=== PATIENT | male | born 1995 | race Caucasian/White ===

== ENCOUNTER 2017-05-23 18:30 | Emergency (ER) | payer BC, OTHER ==
[2017-05-23] MEDS ORDERED: ONDANSETRON 4 MG/2 ML VIAL IVP STA (19:34)
[2017-05-23 21:33] VITALS: BP 127/74; PULSE 76; RESP 18; TEMP 99
--- NOTE | 2017-05-23 21:39 | ED ---
General Adult HPI - General Chief complaint: Overdose Stated complaint: overdose Time Seen by Provider: 05/23/17 18:32 Source: patient, EMS, RN notes reviewed Mode of arrival: EMS Limitations: no limitations - History of Present Illness Initial comments: 22-year-old male presents status post heroin overdose. Patient was found by family apneic and cyanotic. EMS did provide [id number] ventilation, IV was established and 2 mg of IV Narcan was given. Patient admits to using IV heroin laced with fentanyl. States he is a nearly daily user. He used several occasions today. Denies any suicidal ideation. Denies any pain complaints. Denies chest pain shortness of breath denies fever or chills. Patient states he only uses clean needles. - Related Data Home Medications Medication Instructions Recorded Confirmed No Known Home Medications [No 05/23/17 05/23/17 Known Home Medications] Allergies Allergy/AdvReac Type Severity Reaction Status Date / Time Penicillins Allergy Unknown Verified 05/23/17 19:49 Childhood Review of Systems ROS Statement: Those systems with pertinent positive or pertinent negative responses have been documented in the HPI. ROS Other: All systems not noted in ROS Statement are negative. Past Medical History Past Medical History: No Reported History Additional Past Medical History / Comment(s): anxiety, Depression History of Any Multi-Drug Resistant Organisms: None Reported Past Surgical History: Adenoidectomy, Ear Surgery, Tonsillectomy Past Anesthesia/Blood Transfusion Reactions: No Reported Reaction Past Psychological History: Anxiety, Bipolar, Depression Smoking Status: Current every day smoker Past Alcohol Use History: None Reported Past Drug Use History: Heroin, Opiates - Past Family History Father Family Medical History: Coronary Artery Disease (CAD) Additional Family Medical History / Comment(s): Father is alive at age 58 with history of coronary artery disease. Mother Family Medical History: Hypertension Additional Family Medical History / Comment(s): Mother is alive at age 50 with history of hypertension. Patient has 2 brothers and 3 sisters with no major medical problems. General Exam Limitations: no limitations General appearance: alert, in no apparent distress Head exam: Present: atraumatic, normocephalic Eye exam: Present: normal appearance, PERRL ENT exam: Present: normal exam, mucous membranes moist Neck exam: Present: normal inspection, full ROM. Absent: meningismus Respiratory exam: Present: normal lung sounds bilaterally, respiratory distress. Absent: wheezes Cardiovascular Exam: Present: regular rate, normal rhythm GI/Abdominal exam: Present: soft. Absent: distended, tenderness Extremities exam: Present: other (tract Case throughout bilateral upper extremities) Neurological exam: Present: alert, oriented X3, CN II-XII intact. Absent: motor sensory deficit Psychiatric exam: Present: normal affect, depressed Skin exam: Present: warm, dry Course Vital Signs 05/23/17 05/23/17 05/23/17 18:36 19:00 19:42 Temperature 100.1 F H Pulse Rate 91 86 99 Respiratory 18 18 18 Rate Blood Pressure 138/85 128/82 127/82 O2 Sat by Pulse 100 99 99 Oximetry 05/23/17 05/23/17 20:07 20:53 Temperature Pulse Rate 86 87 Respiratory 18 16 Rate Blood Pressure 125/76 125/75 O2 Sat by Pulse 98 95 Oximetry - Reevaluation(s) Reevaluation #1: 05/23/17 21:39 Patient is observed, on reevaluation, he remains alert and oriented, no respiratory distress, normal respiratory rate, no hypoxia Medical Decision Making - Medical Decision Making 22-year-old male presents status post heroin overdose. Patient admits to using IV heroin. He was given 2 mg IV Narcan by EMS for apnea and cyanosis. Time he arrived to emergency department he was alert and oriented, no respiratory distress, no hypoxia. Patient was observed with no return of symptoms. Patient denies any suicidal ideation or attempt. He'll be discharged home with outpatient follow-up. Disposition Clinical Impression: Poisoning by opiate or related narcotic Disposition: HOME SELF-CARE Condition: Stable Instructions: Opioid Overdose (ED) Referrals: None,Stated [Primary Care Provider] - 1-2 days Eliza Palomino MD [STAFF PHYSICIAN] - 1-2 days Time of Disposition: 21:41
== END 2017-05-23 21:56 | disposition home or self-care (01) ==
LOC: EC 18:30
DX: T40.601A Poisoning by unspecified narcotics, accidental (unintentional), initial encounter (principal); F17.200 Nicotine dependence, unspecified, uncomplicated; Z88.0 Allergy status to penicillin
CPT/HCPCS: 99284; 96374; J2405

== ENCOUNTER 2018-07-17 12:30 | Emergency (ER) | payer BC, OTHER ==
--- NOTE | 2018-07-17 13:36 | ED ---
General Adult HPI - General Chief complaint: Psychiatric Symptoms Stated complaint: Mental Health Time Seen by Provider: 07/17/18 13:13 Source: patient, RN notes reviewed Mode of arrival: ambulatory Limitations: no limitations - History of Present Illness Initial comments: Patient 23-year-old male presented to the emergency room today with chief complaint of needing psychiatric evaluation. Patient was brought in by port please. Patient states that he is homeless he was at a hoahaoism she was trying to get some sleep when somebody called the police on him. He doesn't that he was upset he was "talking shit". He states that they did call the police they felt that he was going to harm himself they brought him here for psychiatric evaluation. Patient denies any thoughts of hurting himself or others. He denies any visual or auditory hallucinations. Denies any other complaints. - Related Data Home Medications Medication Instructions Recorded Confirmed No Known Home Medications 05/23/17 07/17/18 Allergies Allergy/AdvReac Type Severity Reaction Status Date / Time Penicillins Allergy Unknown Verified 07/17/18 13:23 Childhood Review of Systems ROS Statement: Those systems with pertinent positive or pertinent negative responses have been documented in the HPI. ROS Other: All systems not noted in ROS Statement are negative. Past Medical History Past Medical History: No Reported History Additional Past Medical History / Comment(s): anxiety, Depression History of Any Multi-Drug Resistant Organisms: None Reported Past Surgical History: Adenoidectomy, Ear Surgery, Tonsillectomy Past Anesthesia/Blood Transfusion Reactions: No Reported Reaction Past Psychological History: Anxiety, Bipolar, Depression Smoking Status: Current every day smoker Past Alcohol Use History: None Reported Past Drug Use History: Heroin, Opiates - Past Family History Father Family Medical History: Coronary Artery Disease (CAD) Additional Family Medical History / Comment(s): Father is alive at age 58 with history of coronary artery disease. Mother Family Medical History: Hypertension Additional Family Medical History / Comment(s): Mother is alive at age 50 with history of hypertension. Patient has 2 brothers and 3 sisters with no major medical problems. General Exam - General Exam Comments Initial Comments: General: The patient is awake and alert, in no distress, and does not appear acutely ill. Eye: Pupils are equal, round and reactive to light. Extra-ocular movements are intact. No nystagmus. There is normal conjunctiva bilaterally. No signs of icterus. Ears, nose, mouth and throat: There are moist mucous membranes and no oral lesions. Neck: The neck is supple, there is no tenderness or JVD. Cardiovascular: There is a regular rate and rhythm. No murmur, rub or gallop is appreciated. Respiratory: Lungs are clear to auscultation, respirations are non-labored, breath sounds are equal. No wheezes, stridor, rales, or rhonchi. Musculoskeletal: Normal ROM, no tenderness. Sensation intact. Strength 5/5. Pulses equal bilaterally 2+. Neurological: A&O x 3. CN II-XII intact, There are no obvious motor or sensory deficits. Coordination appears grossly intact. Speech is normal. Skin: Skin is warm and dry and no rashes or lesions are noted. Psychiatric: Cooperative. Limitations: no limitations Course Vital Signs 07/17/18 12:35 Temperature 98.1 F Pulse Rate 92 Respiratory 18 Rate Blood Pressure 131/97 O2 Sat by Pulse 94 L Oximetry Medical Decision Making - Medical Decision Making Patient's a urine emergency room by [facility]. The recommended the patient may be discharged follow-up outpatient. [facility] will follow the patient. Patient has no suicidal or homicidal thoughts or plans. Will be discharged. - Lab Data Lab Results 07/17/18 Range/Units 13:15 Urine Opiates Screen Detected H (NotDetected) Ur Oxycodone Screen Not Detected (NotDetected) Urine Methadone Screen Not Detected (NotDetected) Ur Propoxyphene Screen Not Detected (NotDetected) Ur Barbiturates Screen Not Detected (NotDetected) U Tricyclic Antidepress Not Detected (NotDetected) Ur Phencyclidine Scrn Not Detected (NotDetected) Ur Amphetamines Screen Not Detected (NotDetected) U Methamphetamines Scrn Not Detected (NotDetected) U Benzodiazepines Scrn Not Detected (NotDetected) Urine Cocaine Screen Detected H (NotDetected) U Marijuana (THC) Screen Not Detected (NotDetected) Disposition Clinical Impression: Depression Disposition: HOME SELF-CARE Condition: Good Instructions: Depression (ED) Additional Instructions: Please follow-up with community mental health as discussed. Please return to emergency room for any other concerns. Is patient prescribed a controlled substance at d/c from ED?: No Referrals: None,Stated [Primary Care Provider] - 1-2 days Time of Disposition: 16:27
[2018-07-17 13:52] LABS: Amphetamine Screen,Urine Not Detected (NotDetected); Barbiturate Screen,Urine Not Detected (NotDetected); Benzodiazepines Screen,Urine Not Detected (NotDetected); Cocaine Screen,Urine Detected (NotDetected); Methadone Screen, Urine Not Detected (NotDetected); Opiate Screen,Urine Detected (NotDetected); Oxycodone Screen, Urine Not Detected (NotDetected); Phencyclidine Screen,Urine Not Detected (NotDetected); Tricyclic Antidepressant,Urine Not Detected (NotDetected); Urn Cannabinoid Scrn Not Detected (NotDetected)
[2018-07-17 16:47] VITALS: BP 129/69; PULSE 74; RESP 16; TEMP 98.3
== END 2018-07-17 16:47 | disposition home or self-care (01) ==
LOC: EC 12:30
DX: F32.9 Major depressive disorder, single episode, unspecified (principal); F17.200 Nicotine dependence, unspecified, uncomplicated; Z59.0 Homelessness; Z88.0 Allergy status to penicillin
CPT/HCPCS: 80306; 82075; 99283

== ENCOUNTER 2018-12-03 20:59 | Inpatient (IN) | payer MEDICAID, OTHER ==
--- NOTE | 2018-12-03 21:41 | ED ---
General Adult HPI - General Chief complaint: Psychiatric Symptoms Stated complaint: EPS eval Time Seen by Provider: 12/03/18 21:04 Source: patient, RN notes reviewed Mode of arrival: ambulatory Limitations: no limitations - History of Present Illness Initial comments: 23-year-old male presents emergency Department for psychiatric evaluation. Patient states she is depressed and suicidal. Patient states that he does have a history of drug abuse, alcohol abuse. Patient states he recently got out of rehab states he has been using heroin again. Patient states he does not want to live this life. Patient states his last use was yesterday. Patient states he does use intravenous heroin. Patient denies any current alcohol use. Denies any homicidal ideation. Denies any physical complaints. - Related Data Home Medications Medication Instructions Recorded Confirmed No Known Home Medications 05/23/17 12/03/18 Allergies Allergy/AdvReac Type Severity Reaction Status Date / Time Penicillins Allergy Unknown Verified 12/03/18 21:37 Childhood Review of Systems ROS Statement: Those systems with pertinent positive or pertinent negative responses have been documented in the HPI. ROS Other: All systems not noted in ROS Statement are negative. Past Medical History Past Medical History: No Reported History Additional Past Medical History / Comment(s): anxiety, Depression History of Any Multi-Drug Resistant Organisms: None Reported Past Surgical History: Adenoidectomy, Ear Surgery, Tonsillectomy Past Anesthesia/Blood Transfusion Reactions: No Reported Reaction Past Psychological History: Anxiety, Bipolar, Depression Smoking Status: Current every day smoker Past Alcohol Use History: None Reported Past Drug Use History: Heroin, Opiates - Past Family History Father Family Medical History: Coronary Artery Disease (CAD) Additional Family Medical History / Comment(s): Father is alive at age 58 with history of coronary artery disease. Mother Family Medical History: Hypertension Additional Family Medical History / Comment(s): Mother is alive at age 50 with history of hypertension. Patient has 2 brothers and 3 sisters with no major medical problems. General Exam Limitations: no limitations General appearance: alert, in no apparent distress Head exam: Present: atraumatic, normocephalic, normal inspection Eye exam: Present: normal appearance, PERRL, EOMI. Absent: scleral icterus, conjunctival injection, periorbital swelling ENT exam: Present: normal exam, normal oropharynx, mucous membranes moist Neck exam: Present: normal inspection. Absent: tenderness, meningismus, lymphadenopathy Respiratory exam: Present: normal lung sounds bilaterally. Absent: respiratory distress, wheezes, rales, rhonchi, stridor Cardiovascular Exam: Present: regular rate, normal rhythm, normal heart sounds. Absent: systolic murmur, diastolic murmur, rubs, gallop, clicks GI/Abdominal exam: Present: soft, normal bowel sounds. Absent: distended, tenderness, guarding, rebound, rigid Neurological exam: Present: alert, oriented X3, CN II-XII intact Psychiatric exam: Present: depressed Course Vital Signs 12/03/18 21:01 Temperature 98.2 F Pulse Rate 87 Respiratory 18 Rate Blood Pressure 135/88 O2 Sat by Pulse 98 Oximetry Medical Decision Making - Lab Data Lab Results 12/03/18 Range/Units 22:05 Urine Opiates Screen Detected H (NotDetected) Ur Oxycodone Screen Not Detected (NotDetected) Urine Methadone Screen Not Detected (NotDetected) Ur Propoxyphene Screen Not Detected (NotDetected) Ur Barbiturates Screen Not Detected (NotDetected) U Tricyclic Antidepress Not Detected (NotDetected) Ur Phencyclidine Scrn Not Detected (NotDetected) Ur Amphetamines Screen Not Detected (NotDetected) U Methamphetamines Scrn Not Detected (NotDetected) U Benzodiazepines Scrn Not Detected (NotDetected) Urine Cocaine Screen Detected H (NotDetected) U Marijuana (THC) Screen Not Detected (NotDetected) Disposition Clinical Impression: Major depression, Suicidal ideation, Drug abuse Disposition: TRANSFER TO PSYCH HOSP/UNIT Condition: Stable Referrals: None,Stated [Primary Care Provider] - 1-2 days
[2018-12-03 22:29] LABS: Amphetamine Screen,Urine Not Detected (NotDetected); Barbiturate Screen,Urine Not Detected (NotDetected); Benzodiazepines Screen,Urine Not Detected (NotDetected); Cocaine Screen,Urine Detected (NotDetected); Methadone Screen, Urine Not Detected (NotDetected); Opiate Screen,Urine Detected (NotDetected); Oxycodone Screen, Urine Not Detected (NotDetected); Phencyclidine Screen,Urine Not Detected (NotDetected); Tricyclic Antidepressant,Urine Not Detected (NotDetected); Urn Cannabinoid Scrn Not Detected (NotDetected)
[2018-12-04 00:38] VITALS: BMI 22.8
[2018-12-04] MEDS ORDERED: ZIPRASIDONE 20 MG VIAL IM PRN (01:08)
[2018-12-04] MEDS ORDERED: MAGNESIUM HYDROXIDE 2,400 MG/10 ML CUP PO PRN (01:08)
[2018-12-04] MEDS ORDERED: MAG HYDROX/AL HYDROX/SIMETH 30 ML CUP PO PRN (01:08)
[2018-12-04 01:29] LABS: Appearance,Urine Clear (Clear); Bilirubin,Urine Negative (Negative); Blood,Urine Negative (Negative); Color,Urine Light Yellow; Glucose,Urine (UA) Negative (Negative); Ketones,Urine Negative (Negative); Leukocyte Esterase,Urine Negative (Negative); Nitrite,Urine Negative (Negative); Protein,Urine Negative (Negative); Specific Gravity,Urine 1.009 (1.001-1.035); Urobilinogen,Urine <2.0 mg/dL (<2.0)
[2018-12-04] MEDS: LORazepam 1 MG TAB PO PRN ×3 (01:40→19:42)
--- NOTE | 2018-12-04 07:17 | P.MDCNMH ---
History of Present Illness H&P Date: 12/04/18 Chief Complaint: Suicidal ideation 23-year-old male with no significant past medical history except for polysubstance abuse Patient has recently been a drug rehab facility and was discharged however he relapsed into using heroin. His last time 2 days ago. Patient admits to using heroin by injecting. He admits to suicidal ideation with plan to overdose. He has overdosed in the past at least 8 times. Currently denies any physical complaints or any medical history. He denies any fevers or chills headache changes in his vision or hearing denies any chest pain or trouble breathing denies any abdominal pain nausea vomiting or any changes in his bowel or urinary habits. Urine drug screen in the ER was positive for cocaine and opiates Review of Systems Pertinent positives as noted in HPI. All other systems were reviewed and are negative Past Medical History Past Medical History: No Reported History Additional Past Medical History / Comment(s): anxiety, Depression History of Any Multi-Drug Resistant Organisms: None Reported Past Surgical History: Adenoidectomy, Ear Surgery, Tonsillectomy Past Anesthesia/Blood Transfusion Reactions: No Reported Reaction Smoking Status: Current every day smoker - Past Family History Father Family Medical History: Coronary Artery Disease (CAD) Additional Family Medical History / Comment(s): Father is alive at age 58 with history of coronary artery disease. Mother Family Medical History: Hypertension Additional Family Medical History / Comment(s): Mother is alive at age 50 with history of hypertension. Patient has 2 brothers and 3 sisters with no major medical problems. Medications and Allergies Home Medications Medication Instructions Recorded Confirmed Type No Known Home Medications 05/23/17 12/03/18 History Allergies Allergy/AdvReac Type Severity Reaction Status Date / Time Penicillins Allergy Unknown Verified 12/04/18 01:12 Childhood Physical Exam Vitals: Vital Signs Temp Pulse Pulse Resp BP BP Pulse Ox 12/04/18 00:33 98.8 F 82 14 139/86 97 12/03/18 23:58 98.0 F 72 18 152/82 98 12/03/18 21:01 98.2 F 87 18 135/88 98 Intake and Output 12/03/18 12/04/18 12/04/18 22:59 06:59 14:59 Other: Weight 79.379 kg Constitutional: No acute distress, conversant, pleasant Eyes: Anicteric sclerae, moist conjunctiva, no lid-lag Pupils equal round reactive to light ENMT: NC/AT Oropharynx clear, no erythema, no exudates Neck: Supple, FROM, no masses, or JVD No carotid bruits No thyromegaly Lungs: Clear to auscultation Clear to percussion Normal respiratory effort, no accessory muscle use Cardiovascular: Heart regular in rate and rhythm, No murmurs, gallops, or rubs No peripheral edema Abdominal: Soft Nontender, no guarding, rebound or rigidity Abdomen moving with respiration Normoactive bowel sounds No hepatomegaly, No splenomegaly No palpable mass No abdominal wall hernia noted Skin: Injection goldstein over bilateral antecubital fossa Normal temperature, tone, texture, turgor No induration No subcutaneous nodules No rash, lesions No ulcers Extremities: No digital cyanosis No clubbing Pedal pulses intact and symmetrical Radial pulses intact and symmetrical No calf tenderness Psychiatric: Alert and oriented to person, place and time Appropriate affect Poor judgment Neuro Muscles Strength 5/5 in all 4 extremities Sensation to light touch grossly present throughout Cranial nerves II-XII grossly intact No focal sensory deficits Lymphatics: no palpable cervical or supraclavicular , or inguinal lymph nodes Cranial Nerve Examination - Cranial Nerves Cranial Nerve II- Optic: Intact Cranial Nerve III- Oculomotor: Intact Cranial Nerve IV- Trochlear: Intact Cranial Nerve V- Trigeminal: Intact Cranial Nerve - Abducens: Intact Cranial Nerve VII- Facial: Intact Cranial Nerve VIII- Auditory: Intact Cranial Nerve IX- Glossopharyngeal: Intact Cranial Nerve X- Vagus: Intact Cranial Nerve XI- Accessory: Intact Cranial Nerve XII- Hypoglossal: Intact Results Labs: Abnormal Lab Results - Last 24 Hours (Table) 12/03/18 Range/Units 22:05 Urine Opiates Screen Detected H (NotDetected) Urine Cocaine Screen Detected H (NotDetected) Assessment and Plan Assessment: [id number] with no significant past medical history. Presented due to suicidal ideation patient admits to heroin abuse, with history of overdoses in the past. He was having thoughts of ending his life with an overdose. Currently denies any physical or medical complaints. Plan: Suicidal ideation Suicide precautions Management per psych Polysubstance abuse Urine toxicology was positive for cocaine and opiates Patient counseled to avoid drug of abuse Patient recently was discharged from drug rehab facility Tobacco smoking Patient counseled to quit smoking Nicotine replacement therapy offered Patient is ambulatory low risk for DVT Thank you for allowing us to participate in the care of this patient. We will follow peripherally. Do not hesitate to contact us with questions. Someone can be reached from the [facility] hospitalist group at all hours of the day at [phone].
[2018-12-04] MEDS: NICOTINE 7MG/24HR PATCH TRANSDERM SCH (07:52)
[2018-12-04] MEDS ORDERED: HALOPERIDOL LACTATE 5 MG/ML 1 ML VIAL IM PRN (09:49)
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
[2018-12-04] MEDS ORDERED: NALTREXONE HCL 50 MG TAB PO SCH (21:00)
[2018-12-04] MEDS: BENZTROPINE MESYLATE 1 MG TAB PO SCH (21:23)
[2018-12-04] MEDS: ACETAMINOPHEN TAB 325 MG TAB PO PRN (23:59)
[2018-12-05] MEDS: LORazepam 1 MG TAB PO PRN ×3 (03:46→23:46)
[2018-12-05] MEDS: buPROPion XL 150 MG TAB.ER.24H PO SCH (07:39)
[2018-12-05] MEDS: NICOTINE 7MG/24HR PATCH TRANSDERM SCH (07:39)
[2018-12-05] MEDS: BENZTROPINE MESYLATE 1 MG TAB PO SCH ×2 (07:39→21:01)
[2018-12-05] MEDS: ACETAMINOPHEN TAB 325 MG TAB PO PRN (10:56)
--- NOTE | 2018-12-05 12:40 | P.PN ---
Progress Note - Text Progress Note Date: 12/05/18 Interval history: Patient seen in cross coverage today. He relates that last night he was having difficulties, relays he felt like he was having side effects after he took the naltrexone. Naltrexone was discontinued. He feels like he is feeling much better today. He does describe feeling as though he is having some opioid withdrawal symptoms. He states that he last used heroin approximately 2-3 days ago. Mental status exam: He is alert and cooperative with the interview. His speech is fluent, not rapid or pressured. His mood currently appears to be pretty stable. He has not verbalize any hallucinations. He has not verbalize any linda delusions. He denies any thoughts of harm to self or others. He does not show any agitation. Plan: We'll maintain current psychotropic medications as is. We'll discontinue Haldol IM. Monitor for any psychotropic medication side effects and monitor his ongoing response to treatment.
[2018-12-05] MEDS: MELATONIN 3 MG TABLET PO SCH (21:01)
[2018-12-06] MEDS: cloNIDine HCL 0.1 MG TAB PO PRN ×3 (01:30→20:15)
[2018-12-06] MEDS: NICOTINE 7MG/24HR PATCH TRANSDERM SCH ×2 (07:45→09:51)
[2018-12-06] MEDS: buPROPion XL 150 MG TAB.ER.24H PO SCH (07:46)
[2018-12-06] MEDS: BENZTROPINE MESYLATE 1 MG TAB PO SCH (07:46)
[2018-12-06 08:22] LABS: ALT 46 U/L (21-72); AST 28 U/L (17-59); Alkaline Phosphatase 60 U/L (38-126); Anion Gap 11 mmol/L; Bilirubin, Delta 0.2 mg/dL (0.0-0.2); Bilirubin,Unconjugated 0.8 mg/dL (0.0-1.1); Blood Urea Nitrogen 15 mg/dL (9-20); Calcium 10.4 mg/dL (8.4-10.2); Carbon Dioxide 25 mmol/L (22-30); Chloride 108 mmol/L (98-107); Cholesterol 138 mg/dL (<200); Glucose 99 mg/dL (74-99); HDL Cholesterol 47 mg/dL (40-60); LDL Cholesterol,Calculated 75 mg/dL (0-99); Potassium 3.7 mmol/L (3.5-5.1); Sodium 144 mmol/L (137-145); Total Protein 7.8 g/dL (6.3-8.2); Triglycerides 80 mg/dL (<150)
[2018-12-06 09:43] LABS: Basophils # (A) 0.1 k/uL (0-0.2); Basophils % (A) 1 %; Eosinophils # (A) 0.1 k/uL (0-0.7); Eosinophils % (A) 1 %; HCT 42.1 % (39.0-53.0); HGB 14.3 gm/dL (13.0-17.5); Lymphocytes # (A) 2.6 k/uL (1.0-4.8); Lymphocytes % (A) 28 %; MCH 29.9 pg (25.0-35.0); MCHC 33.9 g/dL (31.0-37.0); MCV 88.1 fL (80.0-100.0); Mean Platelet Volume 6.3; Monocytes # (A) 0.5 k/uL (0-1.0); Monocytes % (A) 5 %; Neutrophils # (A) 6.1 k/uL (1.3-7.7); Neutrophils % (A) 64 %; Platelet Count 275 k/uL (150-450); RBC 4.78 m/uL (4.30-5.90); RDW 12.7 % (11.5-15.5); WBC 9.5 k/uL (3.8-10.6)
[2018-12-06] MEDS: LORazepam 1 MG TAB PO PRN ×2 (09:51→18:11)
[2018-12-06] MEDS ORDERED: BENZTROPINE MESYLATE 1 MG TAB PO PRN (11:28)
--- NOTE | 2018-12-06 11:33 | P.PN ---
Progress Note - Text Progress Note Date: 12/06/18 Interval history: Patient is seen again in cross coverage today. He says he did sleep about 3-4 hours last night. Clonidine 0.1 mg 3 times a day when necessary was ordered last night for opioid withdrawal. He describes yesterday having an instance where he picked up an empty box and was trying to make a phone call with it. He relays that he was talking to the nurse about leaving the unit. He is able to use some of his coping skills. He makes reference to at times having some auditory hallucinations that are calling his name. Mental status exam: He is alert and cooperative with the interview. Speech is fluent, not rapid or pressured. His thought processes overall are organized. Regarding mood he does not present in a manic fashion, he does describe having some on and off suicidal ideations but reports he feels safe here on the unit. He describes at times hearing a voice call his name but denies any current auditory hallucinations. He does not show any agitation. Plan: Patient will be maintained on current psychotropic medication regimen. Cogentin will be changed to when necessary, I do not notice any abnormal involuntary movements. We will monitor for any psychosis symptoms, consider addition of a different antipsychotic if necessary.
[2018-12-06] MEDS: MELATONIN 3 MG TABLET PO SCH (20:12)
[2018-12-07] MEDS: LORazepam 1 MG TAB PO PRN ×3 (01:48→20:41)
[2018-12-07] MEDS: NICOTINE 7MG/24HR PATCH TRANSDERM SCH (08:02)
[2018-12-07] MEDS: buPROPion XL 150 MG TAB.ER.24H PO SCH (08:02)
[2018-12-07] MEDS: cloNIDine HCL 0.1 MG TAB PO PRN (08:45)
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
[2018-12-07] MEDS: cloNIDine HCL 0.1 MG TAB PO SCH ×3 (11:42→20:41)
[2018-12-07] MEDS: ACETAMINOPHEN TAB 325 MG TAB PO PRN (16:10)
[2018-12-07] MEDS: MELATONIN 3 MG TABLET PO SCH (20:41)
[2018-12-07] MEDS ORDERED: lamoTRIgine 25 MG TAB PO SCH (21:00)
[2018-12-07] MEDS ORDERED: NALTREXONE HCL 50 MG TAB PO SCH (21:00)
[2018-12-08] MEDS: LORazepam 1 MG TAB PO PRN (04:47)
[2018-12-08 06:35] VITALS: BP 120/65; PULSE 65; RESP 16; TEMP 98.6
[2018-12-08] MEDS: NICOTINE 7MG/24HR PATCH TRANSDERM SCH (08:11)
[2018-12-08] MEDS: cloNIDine HCL 0.1 MG TAB PO SCH (08:12)
[2018-12-08] MEDS ORDERED: buPROPion XL 300 MG TAB.ER.24H PO SCH (09:00)
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
[2018-12-08] MEDS ORDERED: lamoTRIgine 25 MG TAB PO SCH (21:00)
== END 2018-12-08 13:09 | disposition home or self-care (01) | DRG 881 ==
LOC: EC 20:59 → 3MHU 23:58
PROVIDERS: ADMIT Psychiatry & Neurology Psychiatry; ATTEND Psychiatry & Neurology Psychiatry
DX: F32.9 Major depressive disorder, single episode, unspecified (principal); F11.23 Opioid dependence with withdrawal; R45.851 Suicidal ideations; F14.10 Cocaine abuse, uncomplicated; Z71.6 Tobacco abuse counseling; F17.210 Nicotine dependence, cigarettes, uncomplicated; F41.0 Panic disorder [episodic paroxysmal anxiety]; Z79.899 Other long term (current) drug therapy; Z82.49 Family history of ischemic heart disease and other diseases of the circulatory system; Z65.3 Problems related to other legal circumstances; Z88.0 Allergy status to penicillin; Z91.19 Patient's noncompliance with other medical treatment and regimen; Z81.1 Family history of alcohol abuse and dependence
CPT/HCPCS: 80053; 80061; 80306; 81003; 82075; 82248; 83036; 84443; 85025; 99285

== ENCOUNTER 2019-04-26 12:04 | Emergency (ER) | payer OTHER ==
[2019-04-26 12:21] VITALS: RESP 18; TEMP 99
--- NOTE | 2019-04-26 13:12 | ED ---
Upper Extremity HPI - General Chief Complaint: Extremity Injury, Upper Stated Complaint: lt shoulder pain Time Seen by Provider: 04/26/19 12:42 Source: patient, RN notes reviewed Mode of arrival: ambulatory Limitations: no limitations - History of Present Illness Initial Comments: 23-year-old male presents emergency Department chief complaint of left shoulder pain. Patient is has been bothersome for last few days. Patient states he does not know what did do it though he did admit that he helped a friend do a setting gel over the weekend. Patient states pain is worse with movement. Patient states when he lays down he has worsening symptoms. Patient's pain is better at rest worse or no paresthesias no swelling no obvious deformity. - Related Data Home Medications Medication Instructions Recorded Confirmed Ibuprofen [Motrin Ib] 400 mg PO Q6H PRN 04/26/19 04/26/19 Previous Rx's Medication Instructions Recorded Ibuprofen [Motrin] 600 mg PO Q8HR PRN #30 tab 04/26/19 Allergies Allergy/AdvReac Type Severity Reaction Status Date / Time Penicillins Allergy Unknown Verified 04/26/19 13:21 Childhood Review of Systems ROS Statement: Those systems with pertinent positive or pertinent negative responses have been documented in the HPI. ROS Other: All systems not noted in ROS Statement are negative. Past Medical History Past Medical History: No Reported History Additional Past Medical History / Comment(s): anxiety, Depression History of Any Multi-Drug Resistant Organisms: None Reported Past Surgical History: Adenoidectomy, Ear Surgery, Tonsillectomy Past Anesthesia/Blood Transfusion Reactions: No Reported Reaction Past Psychological History: Anxiety, Bipolar, Depression Smoking Status: Current every day smoker Past Alcohol Use History: None Reported Past Drug Use History: None Reported - Past Family History Father Family Medical History: Coronary Artery Disease (CAD) Additional Family Medical History / Comment(s): Father is alive at age 58 with history of coronary artery disease. Mother Family Medical History: Hypertension Additional Family Medical History / Comment(s): Mother is alive at age 50 with history of hypertension. Patient has 2 brothers and 3 sisters with no major medical problems. General Exam Limitations: no limitations General appearance: alert, in no apparent distress Head exam: Present: atraumatic, normocephalic, normal inspection Eye exam: Present: normal appearance, PERRL, EOMI. Absent: scleral icterus, conjunctival injection, periorbital swelling ENT exam: Present: normal exam, normal oropharynx, mucous membranes moist Neck exam: Present: normal inspection, full ROM. Absent: tenderness, meningismus, lymphadenopathy Respiratory exam: Present: normal lung sounds bilaterally. Absent: respiratory distress, wheezes, rales, rhonchi, stridor Cardiovascular Exam: Present: regular rate, normal rhythm, normal heart sounds. Absent: systolic murmur, diastolic murmur, rubs, gallop, clicks Extremities exam: Present: other (Left shoulder full range of motion, mild discomfort about 90, mild tenderness over the joints, neurovascular intact, machine packer strength equal bilaterally) Neurological exam: Present: alert, oriented X3, CN II-XII intact, reflexes normal. Absent: motor sensory deficit Skin exam: Present: warm, dry, intact, normal color. Absent: rash Course Vital Signs 04/26/19 12:19 Temperature 99.0 F Pulse Rate 92 Respiratory 18 Rate Blood Pressure 133/76 O2 Sat by Pulse 97 Oximetry Medical Decision Making - Medical Decision Making 24-year-old male presented for left shoulder pain. Patient's symptoms are consistent with bursitis. Patient x-ray unremarkable. Patient will be discharged. Disposition Clinical Impression: Bursitis of left shoulder Disposition: HOME SELF-CARE Condition: Stable Instructions (If sedation given, give patient instructions): Shoulder Bursitis (ED) Additional Instructions: Please return to the Emergency Department if symptoms worsen or any other concerns. Prescriptions: Ibuprofen [Motrin] 600 mg PO Q8HR PRN #30 tab PRN Reason: Pain Is patient prescribed a controlled substance at d/c from ED?: No Referrals: [facility] [Primary Care Provider] - 1-2 days Time of Disposition: 14:39
--- NOTE | 2019-04-26 14:24 | XR ---
EXAMINATION TYPE: XR shoulder complete LT DATE OF EXAM: 04/26/2019 CLINICAL HISTORY: Left shoulder pain with no known injury TECHNIQUE: Three views of the left shoulder are obtained. COMPARISON: None. FINDINGS: There is no acute fracture/dislocation evident in the left shoulder. The acromioclavicula r and glenohumeral joint spaces appear within normal limits. The visualized ribs are intact and unre markable. IMPRESSION: There is no acute fracture or dislocation in the left shoulder.
[2019-04-26] MEDS ORDERED: DEXAMETHASONE SOD PHOSPHATE 10 MG/ML 1 ML VIAL IM STA (14:41)
[2019-04-26 14:48] VITALS: BP 129/70; PULSE 88
== END 2019-04-26 14:50 | disposition home or self-care (01) ==
LOC: EC 12:04
DX: M75.52 Bursitis of left shoulder (principal); F17.200 Nicotine dependence, unspecified, uncomplicated; Z88.0 Allergy status to penicillin
CPT/HCPCS: 73030; 99283; 96372; J1100

== ENCOUNTER 2019-06-28 14:42 | Emergency (ER) | payer OTHER ==
[2019-06-28 14:48] VITALS: BP 112/76; PULSE 79; RESP 18; TEMP 97.8
[2019-06-28] MEDS ORDERED: KETOROLAC 60 MG/2 ML VIAL IM STA (16:21)
--- NOTE | 2019-06-28 16:32 | ED ---
Back Pain HPI - General Chief Complaint: Back Pain/Injury Stated Complaint: Back injury Time Seen by Provider: 06/28/19 15:11 Source: patient Limitations: no limitations - History of Present Illness Initial Comments: Patient is a 24-year-old male presenting to emergency Department with complaints of right low back pain 3 hours. Patient states he was playing kickball and went to turn it when he felt some tightness in his low back. Patient states at first the pain was very minimal and then a few hours later the pain has increased. Patient states the tightness is in his right lower back and does have some radiation down into his right glut and posterior aspect of upper leg. Patient denies any fever, chills, numbness, tingling, saddle paresthesias, difficulty with urination. Patient denies any history of back surgeries. Patient rates his pain a 7/10. Upon arrival to ER, patient is seen walking around as normal. Vital signs stable, afebrile. - Related Data Home Medications Medication Instructions Recorded Confirmed Ibuprofen [Motrin Ib] 400 mg PO Q6H PRN 04/26/19 04/26/19 Previous Rx's Medication Instructions Recorded Ibuprofen [Motrin] 600 mg PO Q8HR PRN #30 tab 04/26/19 Cyclobenzaprine [Flexeril] 5 mg PO BID #10 tablet 06/28/19 Ketorolac [Toradol] 10 mg PO Q8HR #15 tab 06/28/19 Allergies Allergy/AdvReac Type Severity Reaction Status Date / Time Penicillins Allergy Unknown Verified 06/28/19 14:49 Childhood Review of Systems ROS Statement: Those systems with pertinent positive or pertinent negative responses have been documented in the HPI. ROS Other: All systems not noted in ROS Statement are negative. Past Medical History Past Medical History: No Reported History Additional Past Medical History / Comment(s): anxiety, Depression History of Any Multi-Drug Resistant Organisms: None Reported Past Surgical History: Adenoidectomy, Ear Surgery, Tonsillectomy Past Anesthesia/Blood Transfusion Reactions: No Reported Reaction Past Psychological History: Anxiety, Bipolar, Depression Smoking Status: Current every day smoker Past Alcohol Use History: Occasional Past Drug Use History: None Reported - Past Family History Father Family Medical History: Coronary Artery Disease (CAD) Additional Family Medical History / Comment(s): Father is alive at age 58 with history of coronary artery disease. Mother Family Medical History: Hypertension Additional Family Medical History / Comment(s): Mother is alive at age 50 with history of hypertension. Patient has 2 brothers and 3 sisters with no major medical problems. General Exam - General Exam Comments Initial Comments: GENERAL: Well-appearing, well-nourished and in no acute distress. HEAD: Atraumatic, normocephalic. EYES: Pupils equal round and reactive to light, extraocular movements intact, sclera anicteric, conjunctiva are normal. ENT: TMs normal, nares patent, oropharynx clear without exudates. Moist mucous membranes. NECK: Normal range of motion, supple without lymphadenopathy or JVD. LUNGS: Breath sounds clear to auscultation bilaterally and equal. No wheezes rales or rhonchi. HEART: Regular rate and rhythm without murmurs, rubs or gallops. ABDOMEN: Soft, nontender, normoactive bowel sounds. No guarding, no rebound. No masses appreciated. : Deferred EXTREMITIES: No pitting or edema. No clubbing or cyanosis. Mild tenderness to palpation of the right lumbar paraspinals and right glut. Patient has normal range of motion of the right hip and leg. Sensation equal in bilateral lower extremities. Strength 5 out of 5 in the lower extremities. NEUROLOGICAL: Cranial nerves II through XII grossly intact. Normal speech, normal gait. PSYCH: Normal mood, normal affect. SKIN: Warm, Dry, normal turgor, no rashes or lesions noted. Limitations: no limitations Course Vital Signs 06/28/19 14:46 Temperature 97.8 F Pulse Rate 79 Respiratory 18 Rate Blood Pressure 112/76 O2 Sat by Pulse 98 Oximetry Medical Decision Making - Medical Decision Making Patient is a 24-year-old male presenting with right-sided low back pain 4 hours. Patient was playing kickball when he twisted and felt a pull in his right lower back. Patient denies any previous injuries or surgeries of his back. On exam patient has some mild tenderness to the right lumbar paraspinals with some radiation into the right Glute. Patient's strength is normal, sensation is normal. Patient denies any saddle paresthesias, difficulty urination. Patient was given Toradol for pain relief. Patient will be discharged home with trial of muscle relaxer and anti-inflammatory. Patient is in agreement this plan of care. Patient will follow up with primary care if symptoms persist after 2 weeks. Return parameters were discussed with the patient he verbalizes understanding. Case discussed with Dr. Matt. Disposition Clinical Impression: Strain of lumbar region Disposition: HOME SELF-CARE Condition: Stable Instructions (If sedation given, give patient instructions): Acute Low Back Pain (ED) Additional Instructions: Please return to the Emergency Department if symptoms worsen or any other concerns. Prescriptions: Cyclobenzaprine [Flexeril] 5 mg PO BID #10 tablet Ketorolac [Toradol] 10 mg PO Q8HR #15 tab Is patient prescribed a controlled substance at d/c from ED?: No Referrals: None,Stated [Primary Care Provider] - 1-2 days
== END 2019-06-28 16:47 | disposition home or self-care (01) ==
LOC: EC 14:42 → SUPCPDRO 14:42 → EC 16:47
DX: S39.012A Strain of muscle, fascia and tendon of lower back, initial encounter (principal); F17.200 Nicotine dependence, unspecified, uncomplicated; Z88.0 Allergy status to penicillin; X50.9XXA Other and unspecified overexertion or strenuous movements or postures, initial encounter; Y93.6A Activity, physical games generally associated with school recess, summer camp and children; Y92.39 Other specified sports and athletic area as the place of occurrence of the external cause
CPT/HCPCS: 99283; 96372; J1885

== ENCOUNTER 2020-03-30 05:35 | Emergency (ER) | payer OTHER ==
[2020-03-30 05:40] VITALS: RESP 18; TEMP 98.8
--- NOTE | 2020-03-30 05:52 | ED ---
Overdose HPI - General Chief Complaint: Overdose Stated Complaint: Overdose Time Seen by Provider: 03/30/20 05:47 Source: patient, EMS Mode of arrival: EMS Limitations: no limitations - History of Present Illness Initial Comments: Estevan is a 25-year-old male with a history of IV opiate abuse who presents to the ER after an apparent overdose. Patient reports he was clean for 3 months he was on Vivatrol, he began using IV heroin approximately a week ago and states that he had he is higher doses likely because he still had medication in his system. Patient states that tonight he used heroin and was found by one of his friends unresponsive. Friend was able to give him nasal Narcan and EMS was contacted. EMS arrived on scene to find the patient awake alert oriented vomiting and apparent withdrawal. Patient was transferred to hospital for further evaluation. Upon arrival patient remains awake alert oriented aware of what happened admits to using too much heroin denies other drug use denies suicide attempt. - Related Data Previous Rx's Medication Instructions Recorded Naloxone HCl [Narcan] 4 mg NASAL ONCE PRN #1 unit 03/30/20 Allergies Allergy/AdvReac Type Severity Reaction Status Date / Time Penicillins Allergy Unknown Verified 03/30/20 06:59 Childhood Review of Systems ROS Statement: Those systems with pertinent positive or pertinent negative responses have been documented in the HPI. ROS Other: All systems not noted in ROS Statement are negative. Past Medical History Past Medical History: No Reported History Additional Past Medical History / Comment(s): anxiety, Depression History of Any Multi-Drug Resistant Organisms: None Reported Past Surgical History: Adenoidectomy, Ear Surgery, Tonsillectomy Past Anesthesia/Blood Transfusion Reactions: No Reported Reaction Past Psychological History: Anxiety, Bipolar, Depression Smoking Status: Current every day smoker Past Alcohol Use History: Occasional Past Drug Use History: None Reported - Past Family History Father Family Medical History: Coronary Artery Disease (CAD) Additional Family Medical History / Comment(s): Father is alive at age 58 with history of coronary artery disease. Mother Family Medical History: Hypertension Additional Family Medical History / Comment(s): Mother is alive at age 50 with history of hypertension. Patient has 2 brothers and 3 sisters with no major medical problems. General Exam - General Exam Comments Initial Comments: Physical Exam GENERAL: Patient is well-developed and well-nourished. Patient is nontoxic and well-hydrated and is in no distress. HENT: Normocephalic, Atraumatic. EYES: PERRL, EOMI Pupils 4mm reactive bilaterally PULMONARY: Unlabored respirations. CARDIOVASCULAR: RRR Warm and well perfused extremities ABDOMEN: Non-distended SKIN: No rashes or bruising Scars in AC, no abscess : Deferred NEUROLOGIC: Alert and oriented Normal speech Normal gait MUSCULOSKELETAL: Moving all extremities with no apparent injury PSYCHIATRIC: No SI/HI Limitations: no limitations Course Vital Signs 03/30/20 03/30/20 05:36 06:42 Temperature 98.8 F Pulse Rate 92 78 Respiratory 18 18 Rate Blood Pressure 150/91 129/83 O2 Sat by Pulse 99 99 Oximetry Medical Decision Making - Medical Decision Making Patient was seen and evaluated history is obtained from patient and EMS Patient awake alert oriented status post intranasal Narcan Disposition Clinical Impression: Drug abuse Disposition: HOME SELF-CARE Condition: Stable Instructions (If sedation given, give patient instructions): Adult Overdose (ED) Prescriptions: Naloxone HCl [Narcan] 4 mg NASAL ONCE PRN #1 unit PRN Reason: Opioid Reversal Is patient prescribed a controlled substance at d/c from ED?: No Referrals: None,Stated [Primary Care Provider] - 1-2 days
[2020-03-30 06:43] VITALS: BP 129/83; PULSE 78
== END 2020-03-30 07:04 | disposition home or self-care (01) ==
LOC: EC 05:35
DX: F19.10 Other psychoactive substance abuse, uncomplicated (principal); F17.200 Nicotine dependence, unspecified, uncomplicated; Z88.0 Allergy status to penicillin
CPT/HCPCS: 99284

== ENCOUNTER 2020-05-14 16:04 | Emergency (ER) | payer OTHER ==
[2020-05-14 16:12] VITALS: BP 141/82; PULSE 100; RESP 18; TEMP 98.1
[2020-05-14] MEDS ORDERED: PANTOPRAZOLE 40 MG/10 ML VIAL IVP STA (16:23)
[2020-05-14] MEDS ORDERED: SODIUM CHLORIDE 0.9% 1,000 ML IV STA (16:23)
[2020-05-14] MEDS ORDERED: KETOROLAC 30 MG/ML 1 ML VIAL IVP STA (16:23)
--- NOTE | 2020-05-14 16:26 | ED ---
Abdominal Pain HPI - General Chief Complaint: Abdominal Pain Stated Complaint: abd pain Time Seen by Provider: 05/14/20 16:13 Source: patient Mode of arrival: ambulatory Limitations: no limitations - History of Present Illness Initial Comments: Patient is a 25-year-old male with history of IV drug use presenting to emergency Department with a chief complaint of abdominal pain. Patient reports the pain has been I one for approximately 3 weeks. Patient reports the pain is exacerbated after she uses heroin. Patient reports he used heroin about 4 hours prior to arrival. Patient states the pain has been constant for the past week and feels like pressure. Patient does report patient denies any penile discharge, testicular swelling or tenderness. Denies any nausea vomiting diarrhea. Denies previous history of abdominal surgeries. Denies taking medication to alleviate the symptoms. Denies any back pain chest pain or shortness of breath. States pain is not related to by mouth intake. - Related Data Previous Rx's Medication Instructions Recorded Naloxone HCl [Narcan] 4 mg NASAL ONCE PRN #1 unit 03/30/20 Allergies Allergy/AdvReac Type Severity Reaction Status Date / Time Penicillins Allergy Unknown Verified 05/14/20 16:12 Childhood Review of Systems ROS Statement: Those systems with pertinent positive or pertinent negative responses have been documented in the HPI. ROS Other: All systems not noted in ROS Statement are negative. Past Medical History Past Medical History: No Reported History Additional Past Medical History / Comment(s): anxiety, Depression History of Any Multi-Drug Resistant Organisms: None Reported Past Surgical History: Adenoidectomy, Ear Surgery, Tonsillectomy Past Anesthesia/Blood Transfusion Reactions: No Reported Reaction Past Psychological History: Anxiety, Bipolar, Depression Past Alcohol Use History: Occasional Past Drug Use History: Heroin, IV Drug Use - Past Family History Father Family Medical History: Coronary Artery Disease (CAD) Additional Family Medical History / Comment(s): Father is alive at age 58 with history of coronary artery disease. Mother Family Medical History: Hypertension Additional Family Medical History / Comment(s): Mother is alive at age 50 with history of hypertension. Patient has 2 brothers and 3 sisters with no major medical problems. General Exam Limitations: no limitations General appearance: alert, in no apparent distress Head exam: Present: atraumatic, normocephalic, normal inspection Eye exam: Present: normal appearance, PERRL, EOMI Pupils: Present: miosis ENT exam: Present: normal exam, normal oropharynx, mucous membranes moist, TM's normal bilaterally Neck exam: Present: normal inspection, full ROM. Absent: tenderness Respiratory exam: Present: normal lung sounds bilaterally. Absent: respiratory distress, wheezes Cardiovascular Exam: Present: regular rate, normal rhythm, normal heart sounds GI/Abdominal exam: Present: soft, tenderness (Left lower quadrant tenderness, mild to moderate.), normal bowel sounds. Absent: distended, guarding, rebound, rigid, mass, bruit, pulsatile mass, hernia Extremities exam: Present: normal inspection, full ROM. Absent: tenderness Back exam: Present: normal inspection, full ROM. Absent: tenderness Neurological exam: Present: alert, oriented X3, normal gait Psychiatric exam: Present: normal affect, normal mood Skin exam: Present: warm, dry, intact, normal color Course Vital Signs 05/14/20 16:09 Temperature 98.1 F Pulse Rate 100 Respiratory 18 Rate Blood Pressure 141/82 O2 Sat by Pulse 100 Oximetry Medical Decision Making - Medical Decision Making Patient is a 25-year-old male presented emergency department with a chief complaint of left lower quadrant abdominal pain. On exam patient has mild to moderate left lower quadrant tenderness. CBC CMP and UA is unremarkable. Patie nt has stable vitals. Abdominal x-ray reveals moderate to large stool burden in the pelvis. Patient does use heroin which tends to cause decreased bowel movement. Patient started on lactulose in the ED. Patient advised to use stool softeners daily. Return parameters were thoroughly discussed with patient is an attending agreeable. Case discussed physician. - Lab Data Result diagrams: 05/14/20 16:43 05/14/20 16:43 Lab Results 05/14/20 05/14/20 05/14/20 Range/Units 16:43 16:43 16:43 WBC 6.9 (3.8-10.6) k/uL RBC 5.08 (4.30-5.90) m/uL Hgb 14.9 (13.0-17.5) gm/dL Hct 44.4 (39.0-53.0) % MCV 87.5 (80.0-100.0) fL MCH 29.4 (25.0-35.0) pg MCHC 33.6 (31.0-37.0) g/dL RDW 11.7 (11.5-15.5) % Plt Count 238 (150-450) k/uL Neutrophils % 78 % Lymphocytes % 15 % Monocytes % 3 % Eosinophils % 2 % Basophils % 0 % Neutrophils # 5.4 (1.3-7.7) k/uL Lymphocytes # 1.1 (1.0-4.8) k/uL Monocytes # 0.2 (0-1.0) k/uL Eosinophils # 0.1 (0-0.7) k/uL Basophils # 0.0 (0-0.2) k/uL Sodium 137 (137-145) mmol/L Potassium 4.1 (3.5-5.1) mmol/L Chloride 102 (98-107) mmol/L Carbon Dioxide 26 (22-30) mmol/L Anion Gap 9 mmol/L BUN 12 (9-20) mg/dL Creatinine 0.57 L (0.66-1.25) mg/dL Est GFR (CKD-EPI)AfAm >90 (>60 ml/min/1.73 sqM) Est GFR (CKD-EPI)NonAf >90 (>60 ml/min/1.73 sqM) Glucose 124 H (74-99) mg/dL Calcium 9.7 (8.4-10.2) mg/dL Total Bilirubin 0.5 (0.2-1.3) mg/dL AST 38 (17-59) U/L ALT 49 (4-49) U/L Alkaline Phosphatase 64 (38-126) U/L Total Protein 7.6 (6.3-8.2) g/dL Albumin 5.0 (3.5-5.0) g/dL Lipase 15 L (23-300) U/L Urine Color Yellow Urine Appearance Clear (Clear) Urine pH 7.0 (5.0-8.0) Ur Specific [place] 1.017 (1.001-1.035) Urine Protein Negative (Negative) Urine Glucose (UA) Negative (Negative) Urine Ketones Negative (Negative) Urine Blood Negative (Negative) Urine Nitrite Negative (Negative) Urine Bilirubin Negative (Negative) Urine Urobilinogen <2.0 (<2.0) mg/dL Ur Leukocyte Esterase Negative (Negative) Disposition Clinical Impression: Abdominal pain, Fecal impaction Disposition: HOME SELF-CARE Condition: Stable Instructions (If sedation given, give patient instructions): Abdominal Pain (ED) Additional Instructions: Take a stool softener daily. Drink lots of fluids. Return to emergency department if symptoms worsen. Stop doing heroin. Is patient prescribed a controlled substance at d/c from ED?: No Referrals: None,Stated [Primary Care Provider] - 1-2 days Time of Disposition: 18:38
[2020-05-14 16:57] LABS: Appearance,Urine Clear (Clear); Basophils % (A) 0 %; Bilirubin,Urine Negative (Negative); Blood,Urine Negative (Negative); Color,Urine Yellow; Eosinophils # (A) 0.1 k/uL (0-0.7); Eosinophils % (A) 2 %; Glucose,Urine (UA) Negative (Negative); HCT 44.4 % (39.0-53.0); HGB 14.9 gm/dL (13.0-17.5); Ketones,Urine Negative (Negative); Leukocyte Esterase,Urine Negative (Negative); Lymphocytes # (A) 1.1 k/uL (1.0-4.8); Lymphocytes % (A) 15 %; MCH 29.4 pg (25.0-35.0); MCHC 33.6 g/dL (31.0-37.0); MCV 87.5 fL (80.0-100.0); Mean Platelet Volume 6.5; Monocytes # (A) 0.2 k/uL (0-1.0); Monocytes % (A) 3 %; Neutrophils # (A) 5.4 k/uL (1.3-7.7); Neutrophils % (A) 78 %; Nitrite,Urine Negative (Negative); Platelet Count 238 k/uL (150-450); Protein,Urine Negative (Negative); RBC 5.08 m/uL (4.30-5.90); RDW 11.7 % (11.5-15.5); Specific Gravity,Urine 1.017 (1.001-1.035); Urobilinogen,Urine <2.0 mg/dL (<2.0); WBC 6.9 k/uL (3.8-10.6)
[2020-05-14 17:06] LABS: ALT 49 U/L (4-49); AST 38 U/L (17-59); African American GFR (CKD) >90 (>60 ml/min/1.73 sqM); Alkaline Phosphatase 64 U/L (38-126); Anion Gap 9 mmol/L; Blood Urea Nitrogen 12 mg/dL (9-20); Calcium 9.7 mg/dL (8.4-10.2); Carbon Dioxide 26 mmol/L (22-30); Chloride 102 mmol/L (98-107); Glucose 124 mg/dL (74-99); Non-African American GFR(CKD) >90 (>60 ml/min/1.73 sqM); Potassium 4.1 mmol/L (3.5-5.1); Sodium 137 mmol/L (137-145); Total Bilirubin 0.5 mg/dL (0.2-1.3); Total Protein 7.6 g/dL (6.3-8.2)
--- NOTE | 2020-05-14 18:29 | XR ---
EXAMINATION TYPE: XR abdomen 2V DATE OF EXAM: 05/14/2020 CLINICAL DATA: 25-year-old male left lower quadrant abdominal pain, concern for impaction, [facility] COMPARISON: 01/08/2013 FINDINGS: No evidence for free intraperitoneal air. No dilated small bowel loops or differential air-fluid levels. Moderate overall stool burden, largest within the pelvis. No suspicious calcification seen. IMPRESSION: Moderate to large stool burden especially in the pelvis. No evidence for free air or bowel obstructio n.
[2020-05-14] MEDS ORDERED: LACTULOSE 20 GM/30 ML CUP PO ONE (18:38)
== END 2020-05-14 19:19 | disposition home or self-care (01) ==
LOC: EC 16:04
DX: K56.41 Fecal impaction (principal); F12.90 Cannabis use, unspecified, uncomplicated; Z88.0 Allergy status to penicillin
CPT/HCPCS: 36415; 80053; 83690; 85025; 81003; 74019; 99284; 96374; 96375; 96361; J1885; C9113